=== PATIENT | male | born 1970 | race Caucasian/White ===

== ENCOUNTER 2024-07-14 12:59 | Emergency (ER) | payer MEDICARE, SELFPAY ==
[2024-07-14] VITALS (12 sets, daily range): BP systolic 162–199; BP diastolic 94–119
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
[2024-07-14 13:35] LABS: % Eosinophils 4.3 % (0-6); % Immature Granulocytes 0.4 % (0-0.5); % Lymphocytes 18.6 % (20.5-51.1); % Monocytes 7.5 % (1.7-9.3); % Neutrophils 68.2 % (42.2-75.2); Absolute Basophils 0.1 10^3/uL (0-0.2); Absolute Eosinophils 0.4 10^3/uL (0-0.7); Absolute Lymphocytes 1.9 10^3/uL (1.2-3.4); Absolute Monocytes 0.8 10^3/uL (0.1-0.6); Absolute Neutrophils 6.9 10^3/uL (1.4-6.5); Hemoglobin 14.5 g/dL (13.0-18.0); Mean Corp Hgb Conc. 35.4 g/dL (33.0-37.0); Mean Corpuscular Hgb 29.6 pg (27.0-31.0); Mean Corpuscular Volume 83.7 fL (80.0-94.0); Mean Platelet Volume 9.6 fL (7.4-10.4); Nucleated Red Blood Cells % 0 % (-); Platelet Count 258 10^3/uL (130-400); Red Cell Dist. Width 13.2 % (11.5-14.5); White Blood Cell Count 10.1 10^3/uL (4.8-10.8)
[2024-07-14 13:50] LABS: ALT (SGPT) 35 U/L (0-50); AST (SGOT) 30 U/L (17-59); Acetaminophen < 10 ug/ml (10-30); Albumin 4.3 g/dl (3.5-5.0); Alkaline Phosphatase 106 U/L (38-126); Blood Urea Nitrogen 24 mg/dl (9-20); Calcium 9.8 mg/dl (8.4-10.2); Carbon Dioxide 28 mmol/L (22-30); Chloride 104 mmol/L (98-107); Glucose 123 mg/dl (70-99); Potassium 4.3 mmol/L (3.5-5.1); Salicylate < 1.0 mg/dl (2.0-20.0); Sodium 141 mmol/L (135-145); Total Bilirubin 0.5 mg/dl (0.2-1.3); Total Protein 7.2 g/dl (6.3-8.2); eGFR > 60.00
[2024-07-14 13:52] LABS: Alcohol None Detected
[2024-07-14 14:07] LABS: Amphetamines Positive (Negative); Barbiturates Negative (Negative); Benzodiazepines Negative (Negative); Buprenorphine Negative (Negative); Cocaine Negative (Negative); Marijuana Positive (Negative); Methadone Negative (Negative); Methamphetamines Positive (Negative); Opiates Negative (Negative); Phencyclidine Negative (Negative); Tricyclic Antidepressants Negative (Negative)
[2024-07-14 14:25] LABS: Fentanyl, Urine Negative (Negative)
[2024-07-14] MEDS: ATIVAN 2 MG IM ×2 (15:56→16:12)
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
[2024-07-14] MEDS: HALDOL 10 MG IM (16:13)
[2024-07-15] VITALS (10 sets, daily range): BP systolic 139–187; BP diastolic 77–117
[2024-07-15 08:31] LABS: Glucose - Point of Care 95 mg/dl (70-99)
--- NOTE | 2024-07-15 16:00 | W.PN.UPDATE ---
Update Note
Progress Note Update
Patient is much calmer than he was yesterday. He is overall cooperative with the interview but not interested in treatment; he thinks he is doing God's work and need no medications. However is not demanding to leave.
He reports he had overdosed in 1994 but presently has no suicidal thoughts; he wants to become a [employer]. He also talked about his who of cancer in 2014, he has a son but is not in contact with him. He is eating and sleeping
well presently. Affect is restricted, rogelio stable. Still is delusional. Cognitively he is oriented in all spheres and has basic general knowledge but has poor immediate recall and cannot do basic maths, unable to think abstractly.
Will give Zyprexa 5 mg hs.
== END 2024-07-15 19:19 ==
LOC: EMR 12:59
PROVIDERS: CONSULT PHYSICIAN Psychiatry & Neurology Psychiatry; EMERGENCY PHYSICIAN Emergency Medicine
DX: F23 Brief psychotic disorder (principal); F15.10 Other stimulant abuse, uncomplicated; F31.9 Bipolar disorder, unspecified; Z88.8 Allergy status to other drugs, medicaments and biological substances; F90.9 Attention-deficit hyperactivity disorder, unspecified type
CPT/HCPCS: 99285; 96372 ×3; 80053; 80143; 80179; 80306; 80307; 82077; 82962; 85025